=== PATIENT | female | born 1975 | race Caucasian/White ===

== ENCOUNTER 2017-01-25 11:10 | Emergency (ER) | payer MEDICAID ==
[2017-01-25] MEDS ORDERED: PANTOPRAZOLE SODIUM 40 MG VIAL IV ONE (12:17)
[2017-01-25] MEDS ORDERED: NORMAL SALINE 1000 ML 1,000 ML IV ONE (12:17)
[2017-01-25] MEDS ORDERED: MORPHINE SULFATE 10 MG/ML INJ IV ONE (12:17)
--- NOTE | 2017-01-25 12:19 | ER Document Report ---
ED Medical Screen (RME) - General Chief Complaint: Abdominal Pain Stated Complaint: ABDOMINAL PAIN Time Seen by Provider: 01/25/17 12:10 Notes: Patient is a 41-year-old female, past medical history gastric bypass, multiple ventral hernia repairs with mesh, presents with 1 day of worsening epigastric abdominal pain and nausea started last night. She says that it feels a burning and sharp sensation. PE: Uncomfortable, tachycardic, moderate epigastric abdominal tenderness I have greeted and performed a rapid initial assessment of this patient. A comprehensive ED assessment and evaluation of the patient, analysis of test results and completion of the medical decision making process will be conducted by additional ED providers. TRAVEL OUTSIDE OF THE [place] IN LAST 30 DAYS: No - Related Data Allergies/Adverse Reactions: nitrofurantoin macrocrystalline [From Macrobid] Allergy (Verified 01/25/17 11:23 ) Anaphylaxis Sulfa (Sulfonamide Antibiotics) Allergy (Verified 01/25/17 11:23) Hives metoclopramide [From Reglan] Adverse Reaction (Verified 01/25/17 11:23) nitrofurantoin [From Macrobid] Adverse Reaction (Verified 01/25/17 11:23) Penicillins Adverse Reaction (Verified 01/25/17 11:23) Past Medical History - Past Medical History Cardiac Medical History: Reports: Hx Hypertension - lisinopril Denies: Hx Coronary Artery Disease, Hx Heart Attack Pulmonary Medical History: Denies: Hx Asthma, Hx Bronchitis, Hx COPD, Hx Pneumonia Neurological Medical History: Denies: Hx Cerebrovascular Accident, Hx Seizures Renal/ Medical History: Denies: Hx Peritoneal Dialysis Musculoskeltal Medical History: Denies Hx Arthritis, Reports Hx Musculoskeletal Deformity Past Surgical History: Reports: Hx Appendectomy - Gastric Bypass, Hx Section - x3, Hx Cholecystectomy, Hx Gastric Bypass Surgery - Immunizations Hx Diphtheria, Pertussis, Tetanus Vaccination: Yes - UNK Physical Exam - Vital signs Vitals: Temp Pulse Resp BP Pulse Ox 98.4 F 133 H 24 H 143/109 H 98 01/25/17 11:23 01/25/17 11:23 01/25/17 11:23 01/25/17 11:23 01/25/17 11:23 Course - Vital Signs Vital signs: Temp Pulse Resp BP Pulse Ox 98.4 F 133 H 24 H 143/109 H 98 01/25/17 11:23 01/25/17 11:23 01/25/17 11:23 01/25/17 11:23 01/25/17 11:23
[2017-01-25 13:21] LABS: APPEARANCE,URINE SLIGHTLY-CLOUDY; BILIRUBIN,URINE SMALL (NEGATIVE); CALCIUM OXALATE CRYSTALS,URINE MODERATE /HPF; GLUCOSE, URINE NEGATIVE (NEGATIVE); KETONES,URINE TRACE mg/dL (NEGATIVE); LEUKOCYTE ESTERASE,URINE MODERATE (NEGATIVE); NITRITE,URINE NEGATIVE (NEGATIVE); PROTEIN,URINE 30 mg/dL (NEGATIVE); UROBILINOGEN,URINE NEGATIVE mg/dL (<2.0)
[2017-01-25 13:57] LABS: ABSOLUTE EOSINOPHILS # (AUTO) 0.2 10^3/uL (0.0-0.6); ABSOLUTE LYMPHOCYTES (AUTO) 1.9 10^3/uL (0.5-4.7); ABSOLUTE MONOCYTES (AUTO) 0.6 10^3/uL (0.1-1.4); ABSOLUTE NEUT (AUTO) 5.2 10^3/uL (1.7-8.2); BASOPHILS % (AUTO) 0.3 % (0-2); EOSINOPHILS % (AUTO) 2.8 % (0-6); HEMATOCRIT 47.5 % (36.0-47.0); HEMOGLOBIN 15.8 g/dL (12.0-15.5); HGB HCT DIFFERENCE -0.1; LYMPHOCYTES % (AUTO) 23.8 % (13-45); MEAN CORPUSCULAR HEMOGLOBIN 30.8 pg (27.0-33.4); MEAN CORPUSCULAR HGB CONC 33.4 g/dL (32.0-36.0); MEAN CORPUSCULAR VOLUME 92 fl (80-97); MONOCYTES % (AUTO) 7.1 % (3-13); RED BLOOD COUNT 5.15 10^6/uL (3.72-5.28); RED CELL DISTRIBUTION WIDTH 13.6 % (11.5-14.0); WHITE BLOOD COUNT 7.9 10^3/uL (4.0-10.5)
[2017-01-25] MEDS ORDERED: DIPHENHYDRAMINE HCL 50 MG/ML VIAL IV ONE (14:00)
[2017-01-25] MEDS ORDERED: MAG HYDROX/AL HYDROX/SIMETH SUSP 30 ML UDCUP PO ONE (14:00)
[2017-01-25] MEDS ORDERED: NORMAL SALINE 1000 ML 1,000 ML IV PRN (14:00)
[2017-01-25] MEDS ORDERED: LIDOCAINE 2% VISCOUS SOLN 20 ML UDCUP PO ONE (14:00)
[2017-01-25] MEDS ORDERED: ONDANSETRON HCL INJ/PF 4 MG/2 ML SDV IV ONE (14:01)
--- NOTE | 2017-01-25 14:10 | ER Document Report ---
ED GI/ - General Chief Complaint: Abdominal Pain Stated Complaint: ABDOMINAL PAIN Time Seen by Provider: 01/25/17 12:10 Mode of Arrival: Ambulatory Information source: Patient TRAVEL OUTSIDE OF THE [place] IN LAST 30 DAYS: No - HPI Patient complains to provider of: Abdominal pain, Dysuria, Vomiting Onset: Yesterday Timing/Duration: Sudden Quality of pain: Pressure, Sharp, Stabbing Severity at maximum: Severe Severity in ED: Severe Pain Level: 4 Location: Epigastric Associated symptoms: Dysuria, Nausea, Vomiting Exacerbated by: Denies Relieved by: Denies Similar symptoms previously: Yes Notes: 01/25/17 14:08 Patient is a 41-year-old female who presents to the emergency room complaining of sharp stabbing epigastric abdominal pain that started yesterday, there is also pressure to it as well as a burning sensation, symptoms have worsened over the past 8-10 hours, she reports nausea with dry heaves but no actual vomiting, she denies a fever, she has had some loose bowel movements but none today, she denies any fevers, she does also report dysuria and hematuria, history of similar symptoms previously, with multiple abdominal surgeries including gastric bypass, multiple hernia repairs, cholecystectomy - Related Data Allergies/Adverse Reactions: nitrofurantoin macrocrystalline [From Macrobid] Allergy (Verified 01/25/17 11:23 ) Anaphylaxis Sulfa (Sulfonamide Antibiotics) Allergy (Verified 01/25/17 11:23) Hives metoclopramide [From Reglan] Adverse Reaction (Verified 01/25/17 11:23) nitrofurantoin [From Macrobid] Adverse Reaction (Verified 01/25/17 11:23) Penicillins Adverse Reaction (Verified 01/25/17 11:23) Past Medical History - General Information source: Patient - Social History Smoking Status: Never Smoker Family History: Reviewed & Not Pertinent Patient has suicidal ideation: No Patient has homicidal ideation: No - Past Medical History Cardiac Medical History: Reports: Hx Hypertension - lisinopril Denies: Hx Coronary Artery Disease, Hx Heart Attack Pulmonary Medical History: Denies: Hx Asthma, Hx Bronchitis, Hx COPD, Hx Pneumonia Neurological Medical History: Denies: Hx Cerebrovascular Accident, Hx Seizures Renal/ Medical History: Denies: Hx Peritoneal Dialysis Musculoskeltal Medical History: Denies Hx Arthritis, Reports Hx Musculoskeletal Deformity Past Surgical History: Reports: Hx Appendectomy - Gastric Bypass, Hx Section - x3, Hx Cholecystectomy, Hx Gastric Bypass Surgery - Immunizations Hx Diphtheria, Pertussis, Tetanus Vaccination: Yes - UNK Review of Systems - Review of Systems Constitutional: No symptoms reported. denies: Fever EENT: No symptoms reported Cardiovascular: No symptoms reported Respiratory: No symptoms reported Gastrointestinal: See HPI Genitourinary: See HPI Female Genitourinary: No symptoms reported Musculoskeletal: No symptoms reported Skin: No symptoms reported Hematologic/Lymphatic: No symptoms reported Neurological/Psychological: No symptoms reported -: Yes All other systems reviewed and negative Physical Exam - Vital signs Vitals: Temp Pulse Resp BP Pulse Ox 98.4 F 133 H 24 H 143/109 H 98 01/25/17 11:23 01/25/17 11:23 01/25/17 11:23 01/25/17 11:23 01/25/17 11:23 Interpretation: Hypertensive, Tachycardic - General General appearance: Appears well, Alert - HEENT Head: Normocephalic, Atraumatic Eyes: Normal Pupils: PERRL - Respiratory Respiratory status: No respiratory distress Chest status: Nontender Breath sounds: Normal Chest palpation: Normal - Cardiovascular Rhythm: Regular Heart sounds: Normal auscultation Murmur: No - Abdominal Inspection: Other - Midline scar Distension: No distension Bowel sounds: Normal Tenderness: Tender - Epigastric Organomegaly: No organomegaly - Back Back: Normal, Nontender - Extremities General upper extremity: Normal inspection, Nontender, Normal color, Normal ROM , Normal temperature General lower extremity: Nontender, Normal ROM, Normal temperature, Normal weight bearing. No: Gulshan's sign Wrist: Other - Erythema to the right wrist, tracing up the veins from where her IV is placed - Neurological Neuro grossly intact: Yes Cognition: Normal Orientation: AAOx4 [place] Coma Scale Eye Opening: Spontaneous [place] Coma Scale Verbal: Oriented [place] Coma Scale Motor: Obeys Commands [place] Coma Scale Total: 15 Speech: Normal Motor strength normal: LUE, RUE, LLE, RLE Sensory: Normal - Psychological Associated symptoms: Normal affect, Normal mood - Skin Skin Temperature: Warm Skin Moisture: Dry Skin Color: Normal Course - Re-evaluation Re-evalutation: 01/25/17 19:59 Laboratory and imaging findings were discussed with patient at bedside which are relatively unremarkable except for a urinary tract infection, she was provided with a copy of all her lab values and imaging findings, for follow-up with her primary care provider, she will be provided with nausea meds, pain meds and antibiotics, advised to follow-up with her primary care provider and surgeon in 2-3 days or return if any additional concerns, patient acknowledges understanding and agreement with this plan - Vital Signs Vital signs: Temp Pulse Resp BP Pulse Ox 98.4 F 133 H 14 150/109 H 98 01/25/17 11:23 01/25/17 11:23 01/25/17 18:05 01/25/17 18:05 01/25/17 18:05 - Laboratory Result Diagrams: 01/25/17 13:30 01/25/17 16:41 Laboratory results interpreted by me: 01/25/17 01/25/17 01/25/17 12:44 13:30 16:41 Hgb 15.8 H Hct 47.5 H Potassium 3.4 L Chloride 108 H Glucose 67 L Total Protein 5.5 L Albumin 3.0 L Urine Protein 30 H Urine Ketones TRACE H Urine Bilirubin SMALL H Ur Leukocyte Esterase MODERATE H - Diagnostic Test Radiology reviewed: Image reviewed, Reports reviewed - EKG Interpretation by Me EKG shows normal: Sinus rhythm Rate: Normal Rhythm: NSR Discharge - Discharge Clinical Impression: Abdominal pain Qualifiers: Abdominal location: generalized Qualified Code(s): R10.84 - Generalized abdominal pain Urinary tract infection Qualifiers: Urinary tract infection type: site unspecified Hematuria presence: without hematuria Qualified Code(s): N39.0 - Urinary tract infection, site not specified Condition: Stable Disposition: HOME, SELF-CARE Instructions: Abdominal Pain ([facility]), Antinausea Medication ([facility]), Urinary Tract Infection ([facility]) Additional Instructions: Follow up with your primary care provider in one to 2 days. Return to the emergency room immediately if symptoms worsen or any additional concerns. Prescriptions: Cephalexin Monohydrate [Keflex 500 mg Capsule] 500 mg PO BID #20 capsule Ondansetron [Zofran Odt 4 mg Tablet] 1 - 2 tab PO Q4H #10 tab.rapdis Oxycodone HCl/Acetaminophen [Percocet 5-325 mg Tablet] 1 - 2 tab PO ASDIR PRN # 15 tablet PRN Reason:
[2017-01-25] MEDS ORDERED: HYDROMORPHONE HCL INJ/PF 2 MG/ML AMPULE IV ONE ×2 (16:50→19:58)
[2017-01-25 17:02] LABS: ALANINE AMINOTRANSFERASE 21 U/L (9-52); ALKALINE PHOSPHATASE 85 U/L (38-126); ANION GAP 7 (5-19); ASPARTATE AMINO TRANSFERASE 21 U/L (14-36); BILIRUBIN,DIRECT 0.4 mg/dL (0.0-0.4); BILIRUBIN,TOTAL 0.4 mg/dL (0.2-1.3); BLOOD UREA NITROGEN 11 mg/dL (7-20); CALCIUM 8.4 mg/dL (8.4-10.2); CARBON DIOXIDE 25 mmol/L (22-30); CHLORIDE 108 mmol/L (98-107); CREATINE KINASE 37 U/L (30-135); CREATININE RESULT 0.59 mg/dL (0.52-1.25); GLUCOSE 67 mg/dL (75-110); LIPASE 136.4 U/L (23-300); POTASSIUM 3.4 mmol/L (3.6-5.0); SODIUM 140.1 mmol/L (137-145); TOTAL PROTEIN 5.5 g/dL (6.3-8.2)
--- NOTE | 2017-01-25 18:23 | EKG REPORT ---
SEVERITY:- BORDERLINE ECG - SINUS RHYTHM PROBABLE LEFT ATRIAL ABNORMALITY : Confirmed by: Tod Laird MD 25-Jan-2017 18:22:54
--- NOTE | 2017-01-25 19:50 | RADIOLOGY REPORT (SQ) ---
EXAM DESCRIPTION: CT ABD/PELVIS WITH IV ORAL COMPLETED DATE/TIME: 01/25/2017 7:37 pm REASON FOR STUDY: abdominal pain Prior gastric bypass and cholecystectomy. Prior hernia repair. COMPARISON: 06/29/2016 TECHNIQUE: CT scan of the abdomen and pelvis performed using helical scanning technique with dynamic intravenous contrast injection. No oral contrast. Images reviewed with lung, soft tissue, and bone windows. Reconstructed coronal and sagittal MPR images reviewed. Delayed images for evaluation of the urinary system also acquired. All images stored on PACS. All CT scanners at this facility use dose modulation, iterative reconstruction, and/or weight based d osing when appropriate to reduce radiation dose to as low as reasonably achievable (ALARA). [facility]: Dose Right [facility]: CareDose [facility]: Dose Right [facility]: Teradose 4D [facility]: Ontodia CONTRAST TYPE AND DOSE: contrast/concentration: Isovue 370.00 mg/ml; Total Contrast Delivered: 55.0 ml; Total Saline Delivered: 50.0 ml RENAL FUNCTION: BUN 11 creatinine 0.59 RADIATION DOSE: Up-to-date CT equipment and radiation dose reduction techniques were employed. CTDIv ol: 4.8 - 5.3 mGy. DLP: 529 mGy-cm.. LIMITATIONS: None. FINDINGS: LOWER CHEST: No significant findings. No nodules or infiltrates. LIVER: Normal size. No masses. Mild ductal dilatation, similar to prior study and likely related to cholecystic. SPLEEN: Normal size. No focal lesions. PANCREAS: No masses. No significant calcifications. No adjacent inflammation or peripancreatic fluid collections. Pancreatic duct not dilated. GALLBLADDER: Surgically absent. Prominent common bile duct similar to prior studies. Again this is likely related prior cholecystectomy. ADRENAL GLANDS: No significant masses or asymmetry. RIGHT KIDNEY AND URETER: No solid masses. No significant calcifications. No hydronephrosis or hyd roureter. LEFT KIDNEY AND URETER: No solid masses. No significant calcifications. No hydronephrosis or hydr oureter. AORTA AND VESSELS: No aneurysm. No dissection. Renal arteries, SMA, celiac without stenosis. RETROPERITONEUM: No retroperitoneal adenopathy, hemorrhage or masses. BOWEL AND PERITONEAL CAVITY: Postsurgical changes from gastric bypass noted. The previously noted an terior abdominal wall hernia containing a loop of bowel has been repaired hip. If no evidence of mas s lesion within the bowel. No inflammatory changes. No evidence of obstruction. No intra-abdominal free air fluid identified. No mesenteric adenopathy. APPENDIX: Normal. PELVIS: No mass or free fluid. Normal bladder. Prior tubal ligation. ABDOMINAL WALL: No masses. No hernias. BONES: No significant or acute findings. OTHER: No other significant finding. IMPRESSION: No acute abnormality identified within the abdomen pelvis. The previously noted anterio r abdominal wall hernia has been repaired. TECHNICAL DOCUMENTATION: JOB ID: [id number] Quality ID # [id number]: Final reports with documentation of one or more dose reduction techniques (e.g., Au tomated exposure control, adjustment of the mA and/or kV according to patient size, use of iterative reconstruction technique) 2010 [employer]- All Rights Reserved
[2017-01-25] MEDS ORDERED: ONDANSETRON ODT 4 MG TAB (6 TAB/DSPK) PO PRN (19:58)
[2017-01-25] MEDS ORDERED: HYDROCODONE/ACETAMINOPHEN 5-325 MG 6 TAB/DSPK PO PRN (19:58)
[2017-01-25 20:22] VITALS: BP 151/105
== END 2017-01-25 20:30 | disposition home or self-care (01) ==
LOC: ER 11:10
DX: R10.84 Generalized abdominal pain (principal); N39.0 Urinary tract infection, site not specified; R11.2 Nausea with vomiting, unspecified; I10 Essential (primary) hypertension; Z98.84 Bariatric surgery status; Z90.49 Acquired absence of other specified parts of digestive tract; Z88.0 Allergy status to penicillin; Z88.2 Allergy status to sulfonamides; Z88.3 Allergy status to other anti-infective agents
CPT/HCPCS: 93005; 96376; 99284; 96361; 96374; 96375; 36415; 82550; 83690; 84703; 85025; 80053; 81001; 84484; 83605; 74177; 93010; J1200; J3490 ×2; J2270; J1170; S0164; J2405; J7030

== ENCOUNTER 2017-01-27 15:24 | Emergency (ER) | payer MEDICAID ==
--- NOTE | 2017-01-27 18:15 | ER Document Report ---
ED Medical Screen (RME) - General Chief Complaint: Abdominal Pain Stated Complaint: ABDOMINAL PAIN Time Seen by Provider: 01/27/17 17:57 Notes: This 41-year-old female patient with prior gastric bypass surgery complains of 4 day history of severe mid epigastric abdominal pain which is a deep stabbing pain, burning pain, comes in waves like contractions. Was seen here 2 days ago and had a negative CT scan of the abdomen and pelvis with contrast. He was prescribed Percocet on that visit. A review of [place] database shows she is on chronic pain management with Percocet. She states the chronic pain management is for cervical neck pain. The patient's mother reports in May 2014 the patient had [address] scans just before the abnormal CT scan that resulted in her transfer to [place]. Review of the records shows this to not be accurate. She had 3 visits that month, one was for palpitations and dizziness. The second several days later with her abdominal pain and she had an acute abdominal series showing a subtle abnormality which was probably be volvulus developing found a couple days later. She finally did have a CT scan on 06/20/2014 showing gross abnormality and was transferred at that time. I have greeted and performed a rapid initial assessment of this patient. A comprehensive ED assessment and evaluation of the patient, analysis of test results and completion of the medical decision making process will be conducted by additional ED providers. TRAVEL OUTSIDE OF THE U.S. IN LAST 30 DAYS: No - Related Data Allergies/Adverse Reactions: nitrofurantoin macrocrystalline [From Macrobid] Allergy (Verified 01/25/17 11:23 ) Anaphylaxis Sulfa (Sulfonamide Antibiotics) Allergy (Verified 01/25/17 11:23) Hives metoclopramide [From Reglan] Adverse Reaction (Verified 01/25/17 11:23) nitrofurantoin [From Macrobid] Adverse Reaction (Verified 01/25/17 11:23) Penicillins Adverse Reaction (Verified 01/25/17 11:23) Past Medical History - Past Medical History Cardiac Medical History: Reports: Hx Hypertension - lisinopril Denies: Hx Coronary Artery Disease, Hx Heart Attack Pulmonary Medical History: Denies: Hx Asthma, Hx Bronchitis, Hx COPD, Hx Pneumonia Neurological Medical History: Denies: Hx Cerebrovascular Accident, Hx Seizures Renal/ Medical History: Denies: Hx Peritoneal Dialysis Musculoskeltal Medical History: Denies Hx Arthritis, Reports Hx Musculoskeletal Deformity Past Surgical History: Reports: Hx Appendectomy - Gastric Bypass, Hx Section - x3, Hx Cholecystectomy, Hx Gastric Bypass Surgery - Immunizations Hx Diphtheria, Pertussis, Tetanus Vaccination: Yes - UNK Physical Exam - Vital signs Vitals: Temp Pulse Resp BP Pulse Ox 98.3 F 79 23 H 147/96 H 99 01/27/17 15:32 01/27/17 15:32 01/27/17 15:32 01/27/17 15:32 01/27/17 15:32 Course - Vital Signs Vital signs: Temp Pulse Resp BP Pulse Ox 98.3 F 79 23 H 147/96 H 99 01/27/17 15:32 01/27/17 15:32 01/27/17 15:32 01/27/17 15:32 01/27/17 15:32
[2017-01-27 19:25] LABS: ABSOLUTE EOSINOPHILS # (AUTO) 0.7 10^3/uL (0.0-0.6); ABSOLUTE LYMPHOCYTES (AUTO) 1.4 10^3/uL (0.5-4.7); ABSOLUTE MONOCYTES (AUTO) 0.4 10^3/uL (0.1-1.4); ABSOLUTE NEUT (AUTO) 6.3 10^3/uL (1.7-8.2); BASOPHILS % (AUTO) 0.3 % (0-2); EOSINOPHILS % (AUTO) 7.6 % (0-6); HEMATOCRIT 44.2 % (36.0-47.0); HEMOGLOBIN 14.6 g/dL (12.0-15.5); HGB HCT DIFFERENCE -0.4; LYMPHOCYTES % (AUTO) 16.3 % (13-45); MEAN CORPUSCULAR HEMOGLOBIN 30.7 pg (27.0-33.4); MEAN CORPUSCULAR VOLUME 93 fl (80-97); MONOCYTES % (AUTO) 4.7 % (3-13); RED BLOOD COUNT 4.74 10^6/uL (3.72-5.28); RED CELL DISTRIBUTION WIDTH 13.1 % (11.5-14.0); SEGMENTED NEUTROPHILS % (AUTO) 71.1 % (42-78); WHITE BLOOD COUNT 8.8 10^3/uL (4.0-10.5)
[2017-01-27 19:31] LABS: APPEARANCE,URINE CLEAR; BILIRUBIN,URINE NEGATIVE (NEGATIVE); GLUCOSE, URINE NEGATIVE (NEGATIVE); KETONES,URINE 100 mg/dL (NEGATIVE); URINE SPECIFIC GRAVITY 1.027
[2017-01-27 19:32] LABS: NITRITE,URINE NEGATIVE (NEGATIVE); PROTEIN,URINE NEGATIVE (NEGATIVE); UROBILINOGEN,URINE NEGATIVE mg/dL (<2.0)
[2017-01-27 19:34] LABS: LEUKOCYTE ESTERASE,URINE NEGATIVE (NEGATIVE); RBC,URINE 0-1 /HPF; WBC,URINE 0-1 /HPF
[2017-01-27 19:35] LABS: BACTERIA,URINE TRACE /HPF
[2017-01-27 19:41] LABS: ALANINE AMINOTRANSFERASE 36 U/L (9-52); ALBUMIN 3.8 g/dL (3.5-5.0); ALKALINE PHOSPHATASE 98 U/L (38-126); ANION GAP 12 (5-19); ASPARTATE AMINO TRANSFERASE 23 U/L (14-36); BILIRUBIN,DIRECT 0.3 mg/dL (0.0-0.4); BILIRUBIN,TOTAL 0.7 mg/dL (0.2-1.3); BLOOD UREA NITROGEN 7 mg/dL (7-20); CALCIUM 9.2 mg/dL (8.4-10.2); CARBON DIOXIDE 25 mmol/L (22-30); CHLORIDE 100 mmol/L (98-107); CREATININE RESULT 0.48 mg/dL (0.52-1.25); GLUCOSE 71 mg/dL (75-110); LIPASE 74.1 U/L (23-300); POTASSIUM 3.9 mmol/L (3.6-5.0); SODIUM 136.9 mmol/L (137-145); TOTAL PROTEIN 6.2 g/dL (6.3-8.2)
--- NOTE | 2017-01-27 20:11 | ER Document Report ---
ED GI/ - General Chief Complaint: Abdominal Pain Stated Complaint: ABDOMINAL PAIN Time Seen by Provider: 01/27/17 17:57 Mode of Arrival: Ambulatory Information source: Patient Notes: 41-year-old female presents to ED for abdominal pain. She had a gastric bypass in the past she also in 2013 had a volvulus that she was transferred to [facility]. 2 days ago she was seen for a abdominal pelvic pain and had a negative CT of the abdomen pelvis. She was prescribed Percocet on that visit. Dr. Whittington looked in the [place] database shows that she is on chronic pain management with oxycodone 15 mg 60 a month for chronic pain in her neck and back. She is also on fentanyl patches 50 mcg patches that she gets 10 of every month. She sees Dr. Joe Allen for these chronic pain management as well as she gets alprazolam 1 mg 90 a month. She states she is supposed to be having neck surgery soon and she has not been taken the oxycodone fentanyl and alprazolam. When further questioned she states that she ran out of the oxycodone and alprazolam. She is also used Percocet prescribed on her visit a couple days ago. TRAVEL OUTSIDE OF THE [place].S. IN LAST 30 DAYS: No - HPI Patient complains to provider of: Abdominal pain, Other - No bowel movement she states since Wednesday Onset: Other - Since Wednesday Timing/Duration: Gradual, Intermittent Quality of pain: Cramping Severity at maximum: Severe Severity in ED: Severe Pain Level: 5 Location: LLQ, RLQ Vaginal bleeding (Compared to normal period): None Exacerbated by: Denies Relieved by: Denies Similar symptoms previously: Yes Recently seen / treated by doctor: Yes - Related Data Allergies/Adverse Reactions: nitrofurantoin macrocrystalline [From Macrobid] Allergy (Verified 01/25/17 11:23 ) Anaphylaxis Sulfa (Sulfonamide Antibiotics) Allergy (Verified 01/25/17 11:23) Hives metoclopramide [From Reglan] Adverse Reaction (Verified 01/25/17 11:23) nitrofurantoin [From Macrobid] Adverse Reaction (Verified 01/25/17 11:23) Penicillins Adverse Reaction (Verified 01/25/17 11:23) Past Medical History - General Information source: Patient - Social History Smoking Status: Never Smoker Cigarette use (# per day): No Chew tobacco use (# tins/day): No Smoking Education Provided: No Frequency of alcohol use: None Drug Abuse: None Lives with: Family Family History: Reviewed & Not Pertinent Patient has suicidal ideation: No Patient has homicidal ideation: No - Past Medical History Cardiac Medical History: Reports: Hx Hypertension - lisinopril , only when in pain Pulmonary Medical History: Reports: None EENT Medical History: Reports: None Neurological Medical History: Reports: None Endocrine Medical History: Reports: None Renal/ Medical History: Reports: None Malignancy Medical History: Reports: None GI Medical History: Reports: Other - volvulus Musculoskeltal Medical History: Reports Hx Musculoskeletal Deformity Skin Medical History: Reports None Psychiatric Medical History: Reports: Hx Anxiety Traumatic Medical History: Reports: None Infectious Medical History: Reports: None Past Surgical History: Reports: Hx Section - x3, Hx Cholecystectomy, Hx Gastric Bypass Surgery - Immunizations Hx Diphtheria, Pertussis, Tetanus Vaccination: Yes - UNK Review of Systems - Review of Systems Constitutional: No symptoms reported EENT: No symptoms reported Cardiovascular: No symptoms reported Respiratory: No symptoms reported Gastrointestinal: Abdominal pain Genitourinary: No symptoms reported Female Genitourinary: No symptoms reported Musculoskeletal: No symptoms reported Skin: No symptoms reported Hematologic/Lymphatic: No symptoms reported Neurological/Psychological: No symptoms reported -: Yes All other systems reviewed and negative Physical Exam - Vital signs Vitals: Temp Pulse Resp BP Pulse Ox 98.3 F 79 23 H 147/96 H 99 01/27/17 15:32 01/27/17 15:32 01/27/17 15:32 01/27/17 15:32 01/27/17 15:32 Interpretation: Normal - General General appearance: Appears well, Alert - HEENT Head: Normocephalic, Atraumatic Eyes: Normal Pupils: PERRL - Respiratory Respiratory status: No respiratory distress Chest status: Nontender Breath sounds: Normal Chest palpation: Normal - Cardiovascular Rhythm: Regular Heart sounds: Normal auscultation Murmur: No - Abdominal Inspection: Normal Distension: No distension Bowel sounds: Normal Tenderness: Tender - Epigastric pain comes in waves her contractions Organomegaly: No organomegaly - Back Back: Normal, Nontender - Extremities General upper extremity: Normal inspection, Nontender, Normal color, Normal ROM , Normal temperature General lower extremity: Normal inspection, Nontender, Normal color, Normal ROM , Normal temperature, Normal weight bearing. No: Gulshan's sign - Neurological Neuro grossly intact: Yes Cognition: Normal Orientation: AAOx4 [place] Coma Scale Eye Opening: Spontaneous [place] Coma Scale Verbal: Oriented [place] Coma Scale Motor: Obeys Commands [place] Coma Scale Total: 15 Speech: Normal Motor strength normal: LUE, RUE, LLE, RLE Sensory: Normal - Psychological Associated symptoms: Normal affect, Normal mood - Skin Skin Temperature: Warm Skin Moisture: Dry Skin Color: Normal Course - Re-evaluation Re-evalutation: 01/27/17 20:14 CT 2 days ago of abdomen and pelvis labs are normal today we will discuss with patient and have her follow-up with her primary doctor tomorrow. - Vital Signs Vital signs: Temp Pulse Resp BP Pulse Ox 98.5 F 71 18 144/102 H 100 01/27/17 18:58 01/27/17 18:58 01/27/17 18:58 01/27/17 18:58 01/27/17 18:58 - Laboratory Result Diagrams: 01/27/17 19:08 01/27/17 19:08 Laboratory results interpreted by me: 01/27/17 01/27/17 01/27/17 18:50 19:08 19:08 Eosinophils % 7.6 H Absolute Eosinophils 0.7 H Sodium 136.9 L Creatinine 0.48 L Glucose 71 L Total Protein 6.2 L Urine Ketones 100 H Discharge - Discharge Clinical Impression: Abdominal pain Qualifiers: Abdominal location: generalized Qualified Code(s): R10.84 - Generalized abdominal pain Additional Instructions: ABDOMINAL PAIN: There are many causes of abdominal pain. Pain can mean a serious problem requiring surgery (such as appendicitis). It can also be an innocent problem that goes away on its own (such as a viral infection). Often, time must pass to determine the cause of pain. The physician does not feel that hospitalization is necessary, at present. Things may change within the next 24 hours. Call the doctor or come back for re- examination if any problems occur, such as: (1) Pain that becomes more severe, steady, or becomes concentrated in one specific area. Also, pain that is more severe with movement or coughing. (2) Vomiting that persists or becomes more frequent. (3) Blood in the vomitus, urine, or bowel movements. Blood in the stool may have a tarry or black appearance. (4) Shaking chills or fever greater than 100 degrees F. (5) The abdomen becomes more distended or swollen. (6) Bowel movements cease. (7) Failure to improve as expected. NORMAL EXAM AND WORKUP: At this time, your examination and workup show no significant abnormality. No significant abnormal physical findings are noted. All laboratory, EKG, and imaging (x-ray, CT scans, ultrasound) studies that were ordered show no significant abnormality. Although your examination and all studies that were ordered showed no significant abnormal finding, there are no examinations and no studies that are 100% accurate. There is always the possibility that some abnormality could exist and not be detected with physical examination or within the limits and capabilities of laboratory and other studies. You should return or follow up as you were instructed on your visit today for further evaluation if your symptoms do not resolve. FOLLOW-UP CARE: If you have been referred to a physician for follow-up care, call the physician s office for an appointment as you were instructed or within the next two days. If you experience worsening or a significant change in your symptoms, notify the physician immediately or return to the Emergency Department at any time for re-evaluation. Please call your primary doctor plan to schedule a follow-up appointment for this abdominal pain. You had a negative CT 2 days ago and your labs are all negative today. Urine is also negative today. Your exam is also negative. Forms: Elevated Blood Pressure Referrals: JOE ALLEN MD [Primary Care Provider] - Follow up as needed
[2017-01-27 21:01] VITALS: BP 150/97
== END 2017-01-27 21:04 | disposition home or self-care (01) ==
LOC: ER 15:24
DX: R10.84 Generalized abdominal pain (principal); G89.29 Other chronic pain; M54.2 Cervicalgia; M54.9 Dorsalgia, unspecified; Z98.84 Bariatric surgery status; Z88.2 Allergy status to sulfonamides; Z88.0 Allergy status to penicillin; Z90.49 Acquired absence of other specified parts of digestive tract
CPT/HCPCS: 36415; 80053; 81001; 83690; 85025; 99284

== ENCOUNTER → 2017-02-01 | Outpatient (CLI) | payer MEDICAID ==
--- NOTE | 2017-02-01 16:12 | RADIOLOGY REPORT (SQ) ---
EXAM DESCRIPTION: U/S ABDOMEN LIMITED W/O DOP COMPLETED DATE/TIME: 02/01/2017 3:58 pm REASON FOR STUDY: EPIGASTRIC PAIN R10.13 EPIGASTRIC PAIN COMPARISON: None. TECHNIQUE: Dynamic and static grayscale images acquired of the right upper quadrant and recorded on PACS. Additional selected color Doppler and spectral images recorded. LIMITATIONS: Study limited due to acoustical interference from fat or from air in the bowel. FINDINGS: PANCREAS: Obscured by overlying bowel gas. LIVER: No masses. Echotexture normal. LIVER VASCULATURE: Normal directional flow of the main portal vein and hepatic veins. GALLBLADDER: Surgically absent. ULTRASOUND-DETECTED PLEITEZ'S SIGN: Negative. INTRAHEPATIC DUCTS AND COMMON DUCT: Common bile duct is dilated, measuring 1.8 cm. Distal portion is obscured by bowel gas. INFERIOR VENA CAVA: Normal flow. AORTA: No aneurysm. RIGHT KIDNEY: Normal size. Normal echogenicity. No solid or suspicious masses. No hydronephrosis. No calcifications. PERITONEAL CAVITY AND RIGHT PLEURAL SPACE: No ascites or effusions. OTHER: No other significant finding. IMPRESSION: DILATED COMMON BILE DUCT. THE DISTAL PORTION IS OBSCURED BY BOWEL GAS. FURTHER EVALUAT ION WITH MRCP MAY BE INDICATED. TECHNICAL DOCUMENTATION: JOB ID: [id number] [employer]- All Rights Reserved
== END ==
LOC: RAD 14:57
PROVIDERS: ATTEND Obstetrics & Gynecology
DX: R10.13 Epigastric pain (principal)
CPT/HCPCS: 76705

== ENCOUNTER → 2017-02-02 | Outpatient (CLI) | payer MEDICAID ==
[2017-02-02 11:09] LABS: HEMATOCRIT 40.7 % (36.0-47.0); HEMOGLOBIN 13.4 g/dL (12.0-15.5); HGB HCT DIFFERENCE -0.5; MEAN CORPUSCULAR HEMOGLOBIN 30.8 pg (27.0-33.4); MEAN CORPUSCULAR HGB CONC 33.1 g/dL (32.0-36.0); MEAN CORPUSCULAR VOLUME 93 fl (80-97); RED BLOOD COUNT 4.36 10^6/uL (3.72-5.28); RED CELL DISTRIBUTION WIDTH 13.3 % (11.5-14.0)
[2017-02-02 11:28] LABS: ALANINE AMINOTRANSFERASE 31 U/L (9-52); ALBUMIN 3.9 g/dL (3.5-5.0); ALKALINE PHOSPHATASE 88 U/L (38-126); ANION GAP 11 (5-19); ASPARTATE AMINO TRANSFERASE 21 U/L (14-36); BILIRUBIN,DIRECT 0.3 mg/dL (0.0-0.4); BILIRUBIN,TOTAL 0.3 mg/dL (0.2-1.3); BLOOD UREA NITROGEN 12 mg/dL (7-20); CALCIUM 9.6 mg/dL (8.4-10.2); CARBON DIOXIDE 25 mmol/L (22-30); CHLORIDE 101 mmol/L (98-107); CREATININE RESULT 0.68 mg/dL (0.52-1.25); GLUCOSE 105 mg/dL (75-110); POTASSIUM 4.4 mmol/L (3.6-5.0); TOTAL PROTEIN 6.8 g/dL (6.3-8.2)
== END ==
LOC: LAB 10:43
PROVIDERS: ATTEND Obstetrics & Gynecology
DX: R25.2 Cramp and spasm (principal); R53.83 Other fatigue; R10.13 Epigastric pain
CPT/HCPCS: 36415; 80053; 83735; 84443; 85027

== ENCOUNTER → 2017-02-05 | Outpatient (CLI) | payer MEDICAID ==
--- NOTE | 2017-02-05 09:34 | RADIOLOGY REPORT (SQ) ---
EXAM DESCRIPTION: MRI ABDOMEN WITHOUT COMPLETED DATE/TIME: 02/05/2017 9:02 am REASON FOR STUDY: (MRCP) CHOLECYSTECTOMY (Z90.49), S/P GASRIC BYPASS (Z98.84), EPIGASRIC PAIN R10.13 EPIGASTRIC PAIN Z90.49 ACQUIRED ABSENCE OF OTHER SPECIFIED PARTS OF DIGESTIV Z98.84 BARIATRIC THEODORE MARCIAL STATUS COMPARISON: CT abdomen pelvis 06/20/2014, 06/29/2016, 01/25/2017 Abdominal ultrasound 02/01/2017 TECHNIQUE: Noncontrast MRCP. Source and MIP images reviewed. LIMITATIONS: None. FINDINGS: GALLBLADDER: Surgically absent INTRAHEPATIC DUCTS: Very mild prominence of the intrahepatic bile ducts, similar to prior CT exams fr om 01/25/2017, 06/29/2016, 06/20/2014. EXTRAHEPATIC DUCTS: The common hepatic duct is 17 mm in diameter. No filling defects worrisome for s tones. No stricture. Common hepatic duct measured about 15 mm in diameter on CT 06/20/2014. Dilated cystic duct stump is present without filling defects worrisome for stones, best shown on mai nal series 11, image 11 and 12. Common bile duct measures about 6 to 7 mm in diameter, without filling defects or stricture. PANCREAS: Generally homogeneous, no gross mass or significant signal alteration. No surrounding infl ammatory changes or fluid. Pancreatic duct is normal. LIVER, SPLEEN, KIDNEYS, ADRENALS: No significant abnormality. VESSELS: No evidence of aneurysm. Grossly appropriate flow voids in the major vascular structures. LUNG BASES: Grossly clear. OTHER: Magnetic artifact from surgical clips along the gastric bypass. Consider upper GI follow-up t o evaluate the gastric pouch outlet, given history of epigastric pain. IMPRESSION: Post cholecystectomy Benign-appearing dilatation of the common hepatic duct, cystic duct stump, and common bile duct Consider upper GI given history of epigastric pain and gastric bypass. TECHNICAL DOCUMENTATION: JOB ID: [id number] [employer]- All Rights Reserved
== END ==
LOC: RAD 07:21
PROVIDERS: ATTEND Obstetrics & Gynecology
DX: R10.13 Epigastric pain (principal); Z90.49 Acquired absence of other specified parts of digestive tract; Z98.84 Bariatric surgery status
CPT/HCPCS: 74181

== ENCOUNTER → 2017-05-07 | Outpatient (CLI) | payer MEDICAID ==
[2017-05-07 16:02] LABS: HEMATOCRIT 37.5 % (36.0-47.0); HEMOGLOBIN 12.9 g/dL (12.0-15.5); HGB HCT DIFFERENCE 1.2; MEAN CORPUSCULAR HEMOGLOBIN 32.1 pg (27.0-33.4); MEAN CORPUSCULAR HGB CONC 34.5 g/dL (32.0-36.0); MEAN CORPUSCULAR VOLUME 93 fl (80-97); RED BLOOD COUNT 4.03 10^6/uL (3.72-5.28); RED CELL DISTRIBUTION WIDTH 12.9 % (11.5-14.0); WHITE BLOOD COUNT 5.9 10^3/uL (4.0-10.5)
== END ==
LOC: OD 14:27
PROVIDERS: ATTEND Obstetrics & Gynecology
DX: D64.9 Anemia, unspecified (principal); R13.10 Dysphagia, unspecified; R63.4 Abnormal weight loss
CPT/HCPCS: 36415; 82550; 85027

== ENCOUNTER → 2017-09-22 | Outpatient (CLI) | payer MEDICAID ==
[2017-09-22 16:48] LABS: HEMATOCRIT 38.9 % (36.0-47.0); HEMOGLOBIN 13.5 g/dL (12.0-15.5); MEAN CORPUSCULAR HEMOGLOBIN 32.2 pg (27.0-33.4); MEAN CORPUSCULAR HGB CONC 34.7 g/dL (32.0-36.0); MEAN CORPUSCULAR VOLUME 93 fl (80-97); PLATELET COUNT 398 10^3/uL (150-450); RED BLOOD COUNT 4.18 10^6/uL (3.72-5.28); RED CELL DISTRIBUTION WIDTH 13.2 % (11.5-14.0); WHITE BLOOD COUNT 5.1 10^3/uL (4.0-10.5)
[2017-09-22 17:07] LABS: ALANINE AMINOTRANSFERASE 98 U/L (9-52); ALKALINE PHOSPHATASE 104 U/L (38-126); ANION GAP 7 (5-19); ASPARTATE AMINO TRANSFERASE 49 U/L (14-36); BLOOD UREA NITROGEN 16 mg/dL (7-20); CALCIUM 9.1 mg/dL (8.4-10.2); CARBON DIOXIDE 32 mmol/L (22-30); CHLORIDE 100 mmol/L (98-107); GLUCOSE 88 mg/dL (75-110); SODIUM 138.5 mmol/L (137-145)
[2017-09-22 18:13] LABS: BILIRUBIN,TOTAL < 0.1 mg/dL (0.2-1.3)
== END ==
LOC: OD 16:04
PROVIDERS: ATTEND Obstetrics & Gynecology
DX: R00.0 Tachycardia, unspecified (principal); R03.0 Elevated blood-pressure reading, without diagnosis of hypertension; R51 Headache; Z83.3 Family history of diabetes mellitus; Z79.891 Long term (current) use of opiate analgesic
CPT/HCPCS: 36415; 80053; 82607; 82746; 83036; 84443; 85027

== ENCOUNTER → 2017-12-09 | Outpatient (CLI) | payer MEDICAID ==
[2017-12-09 12:32] LABS: HEMATOCRIT 38.9 % (36.0-47.0); HEMOGLOBIN 13.2 g/dL (12.0-15.5); MEAN CORPUSCULAR HEMOGLOBIN 31.6 pg (27.0-33.4); MEAN CORPUSCULAR HGB CONC 33.9 g/dL (32.0-36.0); MEAN CORPUSCULAR VOLUME 93 fl (80-97); RED BLOOD COUNT 4.17 10^6/uL (3.72-5.28); RED CELL DISTRIBUTION WIDTH 13.8 % (11.5-14.0); WHITE BLOOD COUNT 10.3 10^3/uL (4.0-10.5)
[2017-12-09 12:48] LABS: PLATELET COUNT 271 10^3/uL (150-450)
[2017-12-09 12:56] LABS: ALANINE AMINOTRANSFERASE 28 U/L (9-52); ALBUMIN 3.2 g/dL (3.5-5.0); ALKALINE PHOSPHATASE 72 U/L (38-126); ANION GAP 10 (5-19); ASPARTATE AMINO TRANSFERASE 26 U/L (14-36); BILIRUBIN,DIRECT 0.2 mg/dL (0.0-0.4); BILIRUBIN,TOTAL 0.2 mg/dL (0.2-1.3); BLOOD UREA NITROGEN 9 mg/dL (7-20); CALCIUM 9.7 mg/dL (8.4-10.2); CARBON DIOXIDE 30 mmol/L (22-30); CHLORIDE 102 mmol/L (98-107); CHOLESTEROL 182.07 mg/dL (0-200); GLUCOSE 76 mg/dL (75-110); POTASSIUM 4.7 mmol/L (3.6-5.0); SODIUM 141.7 mmol/L (137-145); TOTAL PROTEIN 5.6 g/dL (6.3-8.2); TRIGLYCERIDES 61 mg/dL (<150)
[2017-12-09 13:13] LABS: DIRECT LDL 54 mg/dL (<100)
== END ==
LOC: OD 11:16
PROVIDERS: ATTEND Obstetrics & Gynecology
DX: Z98.84 Bariatric surgery status (principal)
CPT/HCPCS: 36415; 80053; 80061; 83036; 85027

== ENCOUNTER 2017-12-16 12:49 | Emergency (ER) | payer SELFPAY ==
[2017-12-16] MEDS ORDERED: PANTOPRAZOLE SODIUM 40 MG VIAL IV ONE (12:59)
[2017-12-16] MEDS ORDERED: NORMAL SALINE 1000 ML 1,000 ML IV ONE (13:02)
[2017-12-16] MEDS ORDERED: ONDANSETRON HCL INJ/PF 4 MG/2 ML SDV IV ONE (13:02)
[2017-12-16] MEDS ORDERED: PANTOPRAZOLE SODIUM 40 MG VIAL IV PRN (13:03)
[2017-12-16 13:21] LABS: ABSOLUTE BASOPHILS # (AUTO) 0.1 10^3/uL (0.0-0.2); ABSOLUTE EOSINOPHILS # (AUTO) 0.2 10^3/uL (0.0-0.6); ABSOLUTE LYMPHOCYTES (AUTO) 2.5 10^3/uL (0.5-4.7); ABSOLUTE MONOCYTES (AUTO) 0.5 10^3/uL (0.1-1.4); ABSOLUTE NEUT (AUTO) 4.2 10^3/uL (1.7-8.2); BASOPHILS % (AUTO) 1.4 % (0-2); EOSINOPHILS % (AUTO) 3.1 % (0-6); HEMATOCRIT 35.3 % (36.0-47.0); HEMOGLOBIN 11.9 g/dL (12.0-15.5); LYMPHOCYTES % (AUTO) 33.6 % (13-45); MEAN CORPUSCULAR HEMOGLOBIN 31.6 pg (27.0-33.4); MEAN CORPUSCULAR HGB CONC 33.7 g/dL (32.0-36.0); MEAN CORPUSCULAR VOLUME 94 fl (80-97); MONOCYTES % (AUTO) 6.3 % (3-13); PLATELET COUNT 467 10^3/uL (150-450); RED BLOOD COUNT 3.76 10^6/uL (3.72-5.28); SEGMENTED NEUTROPHILS % (AUTO) 55.6 % (42-78); TOTAL CELLS COUNTED % (AUTO) 100 %; WHITE BLOOD COUNT 7.5 10^3/uL (4.0-10.5)
[2017-12-16] MEDS ORDERED: HYDROMORPHONE HCL INJ/PF 2 MG/ML AMPULE IV ONE ×3 (13:25→17:39)
--- NOTE | 2017-12-16 13:25 | ER Document Report ---
ED General - General Chief Complaint: Nausea/Vomiting Stated Complaint: VOMITING BLOOD Time Seen by Provider: 12/16/17 13:07 Mode of Arrival: Ambulatory Information source: Patient Notes: 42-year-old female history of gastric bypass previous esophageal ulcer near the bypass section who takes BC powders daily. Patient notes she began vomiting early today initially it was normal in appearance but then had dark clot and then bright red blood. Patient denies any dark stools admits to epigastric pain TRAVEL OUTSIDE OF THE [place] IN LAST 30 DAYS: No - HPI Onset: Just prior to arrival Onset/Duration: Sudden Quality of pain: Sharp Severity: Moderate Pain Level: 2 Associated symptoms: Nausea, Vomiting Exacerbated by: Denies Relieved by: Denies Similar symptoms previously: Yes Recently seen / treated by doctor: Yes - Related Data Allergies/Adverse Reactions: nitrofurantoin macrocrystalline [From Macrobid] Allergy (Verified 12/16/17 13:18 ) Anaphylaxis Sulfa (Sulfonamide Antibiotics) Allergy (Verified 12/16/17 13:18) Hives metoclopramide [From Reglan] Adverse Reaction (Verified 12/16/17 13:18) nitrofurantoin [From Macrobid] Adverse Reaction (Verified 12/16/17 13:18) Penicillins Adverse Reaction (Verified 12/16/17 13:18) Past Medical History - Social History Smoking Status: Current Every Day Smoker Cigarette use (# per day): Yes Chew tobacco use (# tins/day): No Smoking Education Provided: No Family History: Reviewed & Not Pertinent - Past Medical History Cardiac Medical History: Reports: Hx Hypertension - lisinopril , only when in pain Denies: Hx Coronary Artery Disease, Hx Heart Attack Pulmonary Medical History: Denies: Hx Asthma, Hx Bronchitis, Hx COPD, Hx Pneumonia Neurological Medical History: Denies: Hx Cerebrovascular Accident, Hx Seizures Renal/ Medical History: Denies: Hx Peritoneal Dialysis Musculoskeltal Medical History: Denies Hx Arthritis, Reports Hx Musculoskeletal Deformity Psychiatric Medical History: Reports: Hx Anxiety Past Surgical History: Reports: Hx Appendectomy - Gastric Bypass, Hx Section - x3, Hx Cholecystectomy, Hx Gastric Bypass SurgeryComment Only: Hx Abdominal Surgery - gastric bypass, hernia repair x 4 - Immunizations Hx Diphtheria, Pertussis, Tetanus Vaccination: Yes - UNK Review of Systems - Review of Systems Notes: REVIEW OF SYSTEMS: CONSTITUTIONAL : Denies fever, chills, or sweats. Denies recent illness. EENT: Denies eye, ear, throat, or mouth pain or symptoms. Denies nasal or sinus congestion or discharge. Denies throat, tongue, or mouth swelling or difficulty swallowing. CARDIOVASCULAR: Denies chest pain. Denies palpitations or racing or irregular heart beat. Denies ankle edema. RESPIRATORY: Denies cough, cold, or chest congestion. Denies shortness of breath, difficulty breathing, or wheezing. GASTROINTESTINAL: Admits to epigastric pain GENITOURINARY: Denies difficulty urinating, painful urination, burning, frequency, blood in urine, or discharge. FEMALE GENITOURINARY: Denies vaginal bleeding, heavy or abnormal periods, irregular periods. Denies vaginal discharge or odor. MUSCULOSKELETAL: Denies back or neck pain or stiffness. Denies joint pain or swelling. SKIN: Denies rash, lesions or sores. HEMATOLOGIC : Denies easy bruising or bleeding. LYMPHATIC: Denies swollen, enlarged glands. NEUROLOGICAL: Denies confusion or altered mental status. Denies passing out or loss of consciousness. Denies dizziness or lightheadedness. Denies headache. Denies weakness or paralysis or loss of use of either side. Denies problems with gait or speech. Denies sensory loss, numbness, or tingling. Denies seizures. PSYCHIATRIC: Denies anxiety or stress. Denies depression, suicidal ideation, or homicidal ideation. ALL OTHER SYSTEMS REVIEWED AND NEGATIVE. PHYSICAL EXAMINATION: GENERAL: Initially very ill-appearing female significant distress HEAD: Atraumatic, normocephalic. EYES: Pupils equal round and reactive to light, extraocular movements intact, conjunctiva are normal. ENT: Nares patent, oropharynx clear without exudates. Moist mucous membranes. NECK: Normal range of motion, supple without lymphadenopathy LUNGS: Breath sounds clear to auscultation bilaterally and equal. No wheezes rales or rhonchi. HEART: Tachycardic ABDOMEN: Soft, tender in the epigastric region, nondistended abdomen. No guarding, no rebound. No masses appreciated. Female : deferred Musculoskeletal: Normal range of motion, no pitting or edema. No cyanosis. NEUROLOGICAL: Cranial nerves grossly intact. Normal speech, normal gait. Normal sensory, motor exams PSYCH: Normal mood, normal affect. SKIN: Warm, Dry, normal turgor, no rashes or lesions noted. Dictation was performed using [employer] voice recognition software Physical Exam - Vital signs Vitals: Resp 15 12/16/17 13:01 Course - Re-evaluation Re-evalutation: Immediate Protonix bolus drip 2 L of fluid type and screen performed, 12/16/17 13:28 dant paged immediately for transfer 12/16/17 14:[address] Joyce who accepts patient hemoglobin is 1.9 will hold off on transfusion, she is only vomited prior to my evaluation but not after, it is noted large amount of blood in the emesis basins 12/16/17 17:19 Patient's heart rate has improved significantly, currently at rest at 84 blood pressure is stable awaiting transport - Vital Signs Vital signs: Temp Pulse Resp BP Pulse Ox 98.4 F 11 L 98/69 L 97 12/16/17 14:46 12/16/17 16:40 12/16/17 16:40 12/16/17 16:40 - Laboratory Result Diagrams: 12/16/17 13:00 12/16/17 13:00 Laboratory results interpreted by me: 12/16/17 12/16/17 13:00 13:00 Hgb 11.9 L Hct 35.3 L Plt Count 467 H Indirect Bilirubin 0.0 L Total Protein 4.9 L Albumin 2.7 L Critical Care Note - Critical Care Note Total time excluding time spent on procedures (mins): 34 Comments: 34 minutes of critical care time spent in direct contact evaluating and reevaluating the patient, treating symptoms, reviewing labs and studies and speaking with family and consultants excluding any procedures Discharge - Discharge Clinical Impression: Upper GI bleed, Tachycardia Condition: Poor Disposition: [facility] Referrals: ALBERTA ALLEN MD [Primary Care Provider] - Follow up as needed
[2017-12-16] MEDS ORDERED: PROMETHAZINE HCL INJ 25 MG/1 ML VIAL IM ONE ×2 (13:26→21:24)
--- NOTE | 2017-12-16 13:43 | EKG REPORT ---
SEVERITY:- OTHERWISE NORMAL ECG - SINUS TACHYCARDIA : Confirmed by: Tod Laird MD 16-Dec-2017 13:42:24
[2017-12-16 13:50] LABS: ALANINE AMINOTRANSFERASE 27 U/L (9-52); ALBUMIN 2.7 g/dL (3.5-5.0); ALKALINE PHOSPHATASE 61 U/L (38-126); ANION GAP 7 (5-19); ASPARTATE AMINO TRANSFERASE 20 U/L (14-36); BILIRUBIN,DIRECT 0.2 mg/dL (0.0-0.4); BILIRUBIN,TOTAL 0.2 mg/dL (0.2-1.3); BLOOD UREA NITROGEN 15 mg/dL (7-20); CALCIUM 8.8 mg/dL (8.4-10.2); CARBON DIOXIDE 27 mmol/L (22-30); CHLORIDE 107 mmol/L (98-107); GLUCOSE 78 mg/dL (75-110); POTASSIUM 4.2 mmol/L (3.6-5.0); SODIUM 140.9 mmol/L (137-145); TOTAL PROTEIN 4.9 g/dL (6.3-8.2)
[2017-12-16 14:17] LABS: INTERNATIONAL RATION (INR) 1.01; PROTHROMBIN TIME 13.8 SEC (11.4-15.4)
[2017-12-16] MEDS: NORMAL SALINE 1000 ML 1,000 ML IV PRN ×2 (14:45→15:55)
[2017-12-16 15:28] LABS: APPEARANCE,URINE CLEAR; BILIRUBIN,URINE NEGATIVE (NEGATIVE); COLOR,URINE STRAW; GLUCOSE, URINE NEGATIVE (NEGATIVE); KETONES,URINE NEGATIVE (NEGATIVE); LEUKOCYTE ESTERASE,URINE NEGATIVE (NEGATIVE); NITRITE,URINE NEGATIVE (NEGATIVE); PROTEIN,URINE NEGATIVE (NEGATIVE); URINE SPECIFIC GRAVITY 1.004; UROBILINOGEN,URINE NEGATIVE mg/dL (<2.0)
[2017-12-16] MEDS ORDERED: PROCHLORPERAZINE EDISYLATE INJ 10 MG/2 ML VIAL IM ONE (20:10)
[2017-12-16] MEDS ORDERED: DIPHENHYDRAMINE HCL 50 MG/ML VIAL IV ONE (20:10)
[2017-12-16 21:18] VITALS: BP 106/79
== END 2017-12-16 21:18 | disposition short-term general hospital (02) ==
LOC: ER 12:49
DX: K92.2 Gastrointestinal hemorrhage, unspecified (principal); R00.0 Tachycardia, unspecified; K92.0 Hematemesis; R10.13 Epigastric pain; F17.210 Nicotine dependence, cigarettes, uncomplicated; I10 Essential (primary) hypertension; Z98.84 Bariatric surgery status; Z79.899 Other long term (current) drug therapy; Z88.8 Allergy status to other drugs, medicaments and biological substances; Z88.1 Allergy status to other antibiotic agents; Z88.2 Allergy status to sulfonamides
CPT/HCPCS: 93005; 96376; 99291; 96372; 96375; 96365; 96366; 86900; 86901; 36415; 86850; 85025; 85610; 80053; 81001; 93010; J1200; J1170; S0164; J0780; J2550; J7030

== ENCOUNTER → 2017-12-16 | Outpatient (CLI) | payer MEDICAID ==
[2017-12-16 11:29] LABS: ABSOLUTE BASOPHILS # (AUTO) 0.1 10^3/uL (0.0-0.2); ABSOLUTE EOSINOPHILS # (AUTO) 0.2 10^3/uL (0.0-0.6); ABSOLUTE LYMPHOCYTES (AUTO) 1.4 10^3/uL (0.5-4.7); ABSOLUTE MONOCYTES (AUTO) 0.3 10^3/uL (0.1-1.4); ABSOLUTE NEUT (AUTO) 4.8 10^3/uL (1.7-8.2); BASOPHILS % (AUTO) 0.8 % (0-2); EOSINOPHILS % (AUTO) 3.5 % (0-6); HEMATOCRIT 37.7 % (36.0-47.0); HEMOGLOBIN 12.7 g/dL (12.0-15.5); LYMPHOCYTES % (AUTO) 20.4 % (13-45); MEAN CORPUSCULAR HEMOGLOBIN 31.6 pg (27.0-33.4); MEAN CORPUSCULAR HGB CONC 33.8 g/dL (32.0-36.0); MEAN CORPUSCULAR VOLUME 94 fl (80-97); MONOCYTES % (AUTO) 4.8 % (3-13); PLATELET COUNT 395 10^3/uL (150-450); RED BLOOD COUNT 4.03 10^6/uL (3.72-5.28); SEGMENTED NEUTROPHILS % (AUTO) 70.5 % (42-78); TOTAL CELLS COUNTED % (AUTO) 100 %; WHITE BLOOD COUNT 6.8 10^3/uL (4.0-10.5)
[2017-12-16 11:50] LABS: ALANINE AMINOTRANSFERASE 28 U/L (9-52); ALKALINE PHOSPHATASE 70 U/L (38-126); ANION GAP 7 (5-19); ASPARTATE AMINO TRANSFERASE 22 U/L (14-36); BILIRUBIN,DIRECT 0.2 mg/dL (0.0-0.4); BILIRUBIN,TOTAL 0.2 mg/dL (0.2-1.3); BLOOD UREA NITROGEN 14 mg/dL (7-20); CARBON DIOXIDE 29 mmol/L (22-30); CHLORIDE 105 mmol/L (98-107); GLUCOSE 88 mg/dL (75-110); POTASSIUM 4.6 mmol/L (3.6-5.0); SODIUM 140.5 mmol/L (137-145); TOTAL PROTEIN 5.4 g/dL (6.3-8.2)
== END ==
LOC: OD 10:24
PROVIDERS: ATTEND Obstetrics & Gynecology
DX: K92.0 Hematemesis (principal); Z98.84 Bariatric surgery status; Z51.81 Encounter for therapeutic drug level monitoring; Z79.899 Other long term (current) drug therapy
CPT/HCPCS: 36415; 80053; 85025

== ENCOUNTER 2018-02-09 08:36 | Outpatient (CLI) | payer MEDICAID ==
[~2018-02-09 08:36] MED LIST: FERRIC CARBOXYMALTOSE 750 MG in NORMAL SALINE 250 ML IV PRN; NORMAL SALINE 250 ML IV PRN
[2018-02-09 09:27] VITALS: BP 137/91
== END 2018-02-09 10:13 | disposition home or self-care (01) ==
LOC: II 08:36 → 5TH 08:37 → II 10:13
PROVIDERS: ATTEND Internal Medicine Hematology & Oncology
PROC: 3E033GC Introduction of Other Therapeutic Substance into Peripheral Vein, Percutaneous Approach (ICD-10-PCS; principal; 2018-02-09)
DX: D50.0 Iron deficiency anemia secondary to blood loss (chronic) (principal); K91.2 Postsurgical malabsorption, not elsewhere classified
CPT/HCPCS: 96365; J7050; J1439

== ENCOUNTER 2018-02-16 08:38 | Outpatient (CLI) | payer MEDICAID ==
[2018-02-16 09:38] VITALS: BP 140/95
== END 2018-02-16 10:07 | disposition home or self-care (01) ==
LOC: II 08:38 → 5TH 08:41 → II 10:07
PROVIDERS: ATTEND Internal Medicine Hematology & Oncology
PROC: 3E033GC Introduction of Other Therapeutic Substance into Peripheral Vein, Percutaneous Approach (ICD-10-PCS; principal; 2018-02-16)
DX: D50.0 Iron deficiency anemia secondary to blood loss (chronic) (principal); K91.2 Postsurgical malabsorption, not elsewhere classified
CPT/HCPCS: 96365; J7050; J1439; 96367

== ENCOUNTER 2018-04-13 16:44 | Emergency (ER) | payer MEDICAID ==
[2018-04-13] MEDS ORDERED: ONDANSETRON HCL INJ/PF 4 MG/2 ML SDV IV ONE (17:56)
[2018-04-13] MEDS ORDERED: FAMOTIDINE INJ/PF 20 MG/2 ML SDV IV ONE (17:56)
[2018-04-13] MEDS ORDERED: NORMAL SALINE 250 ML IV PRN (17:57)
[2018-04-13] MEDS ORDERED: PANTOPRAZOLE SODIUM 40 MG VIAL IV PRN (18:00)
--- NOTE | 2018-04-13 18:01 | ER Document Report ---
ED Medical Screen (RME) - General Chief Complaint: Abdominal Pain Stated Complaint: VOMTING BLOOD Time Seen by Provider: 04/13/18 17:55 Information source: Patient Notes: 42 years old female with a history of peptic ulcer, bleeding ulcers in the past , took ibuprofen a few days ago presents today with tarry stool this morning then nausea vomited blood feeling dizzy and lightheaded. Presented to the ED with low blood pressure and appearing pale. Conjunctivae is pale TRAVEL OUTSIDE OF THE [place] IN LAST 30 DAYS: No - Related Data Allergies/Adverse Reactions: nitrofurantoin macrocrystalline [From Macrobid] Allergy (Verified 12/16/17 13:18 ) Anaphylaxis Sulfa (Sulfonamide Antibiotics) Allergy (Verified 12/16/17 13:18) Hives metoclopramide [From Reglan] Adverse Reaction (Verified 12/16/17 13:18) nitrofurantoin [From Macrobid] Adverse Reaction (Verified 12/16/17 13:18) Penicillins Adverse Reaction (Verified 12/16/17 13:18) Past Medical History - Past Medical History Cardiac Medical History: Reports: Hx Hypertension - lisinopril , only when in pain Denies: Hx Coronary Artery Disease, Hx Heart Attack Pulmonary Medical History: Denies: Hx Asthma, Hx Bronchitis, Hx COPD, Hx Pneumonia Neurological Medical History: Denies: Hx Cerebrovascular Accident, Hx Seizures Renal/ Medical History: Denies: Hx Peritoneal Dialysis Musculoskeltal Medical History: Denies Hx Arthritis, Reports Hx Musculoskeletal Deformity Psychiatric Medical History: Reports: Hx Anxiety Past Surgical History: Reports: Hx Appendectomy - Gastric Bypass, Hx Section - x3, Hx Cholecystectomy, Hx Gastric Bypass SurgeryComment Only: Hx Abdominal Surgery - gastric bypass, hernia repair x 4 - Immunizations Hx Diphtheria, Pertussis, Tetanus Vaccination: Yes - UNK Physical Exam - Vital signs Vitals: Temp Pulse Resp BP 98.2 F 120 H 16 76/56 L 04/13/18 17:25 04/13/18 17:25 04/13/18 17:25 04/13/18 17:25 Course - Vital Signs Vital signs: Temp Pulse Resp BP Pulse Ox 98.2 F 120 H 16 76/56 L 04/13/18 17:25 04/13/18 17:25 04/13/18 17:25 09/19/18 17:25 Doctor's Discharge - Discharge Referrals: ALBERTA ALLEN MD [Primary Care Provider] - Follow up as needed
--- NOTE | 2018-04-13 18:35 | ER Document Report ---
ED General - General Chief Complaint: Abdominal Pain Stated Complaint: VOMTING BLOOD Time Seen by Provider: 04/13/18 17:55 Mode of Arrival: Ambulatory Information source: Patient, [facility] Records Notes: 42-year-old female with hypertension, chronic back and neck pain, iron deficiency anemia, history of upper GI bleed, gastric bypass presents with complaint of coffee-ground emesis and black tarry stools. Patient states that she had a bowel movement earlier this morning which she describes as black. She states her second bowel movement was black with bright red blood. Patient states that she also had 2 episodes of black emesis which was streaked with blood. Patient states that one year prior to arrival she had similar symptoms and was transferred to [facility] where they found a perforation near her anastomosis. Patient currently takes Carafate, Protonix. Patient also complaining of epigastric abdominal pain that radiates to her back. She describes it as a burning throbbing pain. TRAVEL OUTSIDE OF THE [place] IN LAST 30 DAYS: No - HPI Onset: This morning Onset/Duration: Sudden Quality of pain: Pressure, Stabbing Severity: Mild Associated symptoms: Nausea, Vomiting, Other - Dizziness Exacerbated by: Denies Relieved by: Denies Similar symptoms previously: Yes Recently seen / treated by doctor: No - Related Data Allergies/Adverse Reactions: nitrofurantoin macrocrystalline [From Macrobid] Allergy (Verified 04/13/18 21:24 ) Anaphylaxis Sulfa (Sulfonamide Antibiotics) Allergy (Verified 04/13/18 21:24) Hives metoclopramide [From Reglan] Adverse Reaction (Verified 04/13/18 21:24) nitrofurantoin [From Macrobid] Adverse Reaction (Verified 04/13/18 21:24) Penicillins Adverse Reaction (Verified 04/13/18 21:24) Past Medical History - General Information source: Patient, [facility] Records - Social History Smoking Status: Current Every Day Smoker Cigarette use (# per day): Yes - 10 Smoking Education Provided: Yes - Smoking cessation counseling was provided for 4 minutes at the bedside Frequency of alcohol use: None Drug Abuse: None Lives with: Family Family History: Reviewed & Not Pertinent Patient has suicidal ideation: No Patient has homicidal ideation: No - Past Medical History Cardiac Medical History: Reports: Hx Hypertension - lisinopril , only when in pain Denies: Hx Coronary Artery Disease, Hx Heart Attack Pulmonary Medical History: Denies: Hx Asthma, Hx Bronchitis, Hx COPD, Hx Pneumonia Neurological Medical History: Denies: Hx Cerebrovascular Accident, Hx Seizures Renal/ Medical History: Denies: Hx Peritoneal Dialysis Musculoskeletal Medical History: Denies Hx Arthritis, Reports Hx Musculoskeletal Deformity Psychiatric Medical History: Reports: Hx Anxiety Past Surgical History: Reports: Hx Appendectomy - Gastric Bypass, Hx Section - x3, Hx Cholecystectomy, Hx Gastric Bypass SurgeryComment Only: Hx Abdominal Surgery - gastric bypass, hernia repair x 4 - Immunizations Hx Diphtheria, Pertussis, Tetanus Vaccination: Yes - UNK Review of Systems - Review of Systems Notes: REVIEW OF SYSTEMS: CONSTITUTIONAL : Denies fever, chills, or sweats. Denies recent illness. Denies weight loss, recent hospitalizations. EENT: Denies visual changes, eye pain. Denies sore throat, oral lesions, difficulty swallowing. CARDIOVASCULAR: Denies chest pain. Denies palpitations. Denies lower extremity edema. RESPIRATORY: Denies cough. Denies shortness of breath, wheezing. GASTROINTESTINAL: Denies abdominal distention. Denies diarrhea. Denies constipation. GENITOURINARY: Denies difficulty urinating, painful urination, frequency, blood in urine, or vaginal discharge. MUSCULOSKELETAL: Denies back or neck pain or stiffness. Denies joint pain or swelling. SKIN: Denies rash, lesions or sores. HEMATOLOGIC : Denies easy bruising or bleeding. LYMPHATIC: Denies swollen glands. NEUROLOGICAL: Denies confusion or altered mental status. Denies loss of consciousness. Denies dizziness or lightheadedness. Denies headache. Denies weakness or paralysis. Denies problems difficulty with ambulation, slurred speech. Denies sensory loss, numbness, or tingling. Denies seizures. PSYCHIATRIC: Denies anxiety or stress. Denies depression, suicidal ideation, or homicidal ideation. Denies visual or auditory hallucinations. Physical Exam - Vital signs Vitals: Temp Pulse Resp BP 98.2 F 120 H 16 76/56 L 04/13/18 17:25 04/13/18 17:25 04/13/18 17:25 04/13/18 17:25 Interpretation: Hypotensive, Tachycardic. No: Febrile - Notes Notes: PHYSICAL EXAMINATION: GENERAL: ILL-appearing, in moderate distress. HEAD: Atraumatic, normocephalic. EYES: Pupils equal round and reactive to light, extraocular movements intact, pale conjunctiva ENT: Nares patent, oropharynx clear without exudates. Moist mucous membranes. NECK: Normal range of motion, supple without lymphadenopathy LUNGS: Breath sounds clear to auscultation bilaterally and equal. No wheezes rales or rhonchi. HEART: Tachycardic, regular rhythm without murmurs ABDOMEN: Tender to palpation in the epigastric region. No guarding, no rebound. No masses appreciated. Female : Brown stool, no gross blood Musculoskeletal: Normal range of motion, no pitting or edema. No cyanosis. NEUROLOGICAL: Cranial nerves grossly intact. Normal speech, normal gait. Normal sensory, motor exams PSYCH: Normal mood, normal affect. SKIN: Pale Course - Re-evaluation Re-evalutation: Laboratory 04/13/18 04/13/18 04/13/18 18:20 18:45 18:45 WBC 5.9 RBC 3.64 L Hgb 10.8 L Hct 32.4 L MCV 89 MCH 29.8 MCHC 33.4 RDW 17.0 H Plt Count 252 Seg Neutrophils % 79.4 H Lymphocytes % 14.6 Monocytes % 5.5 Eosinophils % 0.2 Basophils % 0.3 Absolute Neutrophils 4.7 Absolute Lymphocytes 0.9 Absolute Monocytes 0.3 Absolute Eosinophils 0.0 Absolute Basophils 0.0 Sodium 136.8 L Potassium 4.3 Chloride 108 H Carbon Dioxide 23 Anion Gap 6 BUN 22 H Creatinine 0.55 Est GFR ( Amer) > 60 Est GFR (Non-Af Amer) > 60 Glucose 108 Calcium 8.5 Total Bilirubin 0.2 Direct Bilirubin 0.2 Neonat Total Bilirubin Not Reportable Neonat Direct Bilirubin Not Reportable Neonat Indirect Bili Not Reportable AST 18 ALT 25 Alkaline Phosphatase 58 Total Protein 4.8 L Albumin 2.6 L Lipase 57.6 Urine Color Urine Appearance Urine pH Ur Specific [place] Urine Protein Urine Glucose (UA) Urine Ketones Urine Blood Urine Nitrite Urine Bilirubin Urine Urobilinogen Ur Leukocyte Esterase Urine WBC (Auto) Urine Bacteria (Auto) Squamous Epi Cells Auto Urine Mucus (Auto) Urine Ascorbic Acid Urine HCG, Qual Stool Occult Blood POSITIVE Blood Type Antibody Screen Crossmatch 04/13/18 04/13/18 19:00 21:45 WBC RBC Hgb Hct MCV MCH MCHC RDW Plt Count Seg Neutrophils % Lymphocytes % Monocytes % Eosinophils % Basophils % Absolute Neutrophils Absolute Lymphocytes Absolute Monocytes Absolute Eosinophils Absolute Basophils Sodium Potassium Chloride Carbon Dioxide Anion Gap BUN Creatinine Est GFR ( Amer) Est GFR (Non-Af Amer) Glucose Calcium Total Bilirubin Direct Bilirubin Neonat Total Bilirubin Neonat Direct Bilirubin Neonat Indirect Bili AST ALT Alkaline Phosphatase Total Protein Albumin Lipase Urine Color YELLOW Urine Appearance SLIGHTLY-CLOUDY Urine pH 7.0 Ur Specific [place] 1.012 Urine Protein NEGATIVE Urine Glucose (UA) NEGATIVE Urine Ketones NEGATIVE Urine Blood NEGATIVE Urine Nitrite POSITIVE H Urine Bilirubin NEGATIVE Urine Urobilinogen NEGATIVE Ur Leukocyte Esterase TRACE H Urine WBC (Auto) 4 Urine Bacteria (Auto) 3+ Squamous Epi Cells Auto <1 Urine Mucus (Auto) FEW Urine Ascorbic Acid NEGATIVE Urine HCG, Qual NEGATIVE Stool Occult Blood Blood Type A POSITIVE Antibody Screen NEGATIVE Crossmatch See Detail 04/13/18 20:33 [facility] contacted for transfer 04/13/18 20:[address] Mott from [facility]. Despite multiple fluid boluses patient remains tachycardic and hypotensive. She reports no improvement of her pain. Patient placed on octreotide and Protonix drip. Patient administered 0.5 mg of Dilaudid. 04/13/18 22:25 On reevaluation patient reports that her pain is still present but greatly improved. Her tachycardia has resolved and blood pressure has normalized. Patient stable for transfer. ED course: 42-year-old female with hypertension, chronic back and neck pain, iron deficiency anemia, history of upper GI bleed, gastric bypass presents with complaint of coffee-ground emesis and black tarry stools. Upon arrival patient is tachycardic, hypotensive and in moderate amount of pain. She states that this feels similar to her recent GI bleed in November 2017. She states at that time she had a perforation at the anastomosis site of her gastric bypass. IV fluids were initiated as well as Protonix, octreotide. Hemoglobin stable. stool positive for blood. Patient received 3 L of IV fluids, Dilaudid, Pepcid. Patient's pain was difficult to control. She does appear quite ill. Although her hemoglobin is stable with her prior history of massive upper GI bleed I feel it is in the patient's best interest to be transferred where she can be evaluated by gastroenterology and placed in the ICU. Patient's prior procedure was done at [facility] she was transferred via [facility]. 04/13/18 23:48 04/13/18 23:50 - Vital Signs Vital signs: Temp Pulse Resp BP Pulse Ox 98.5 F 120 H 18 123/93 H 100 04/13/18 22:19 04/13/18 17:25 04/13/18 22:19 04/13/18 22:19 04/13/18 22:19 - Laboratory Result Diagrams: 04/13/18 18:45 04/13/18 18:45 Laboratory results interpreted by me: 04/13/18 04/13/18 04/13/18 18:45 18:45 19:00 RBC 3.64 L Hgb 10.8 L Hct 32.4 L RDW 17.0 H Seg Neutrophils % 79.4 H Sodium 136.8 L Chloride 108 H BUN 22 H Total Protein 4.8 L Albumin 2.6 L Urine Nitrite Ur Leukocyte Esterase Crossmatch See Detail 04/13/18 21:45 RBC Hgb Hct RDW Seg Neutrophils % Sodium Chloride BUN Total Protein Albumin Urine Nitrite POSITIVE H Ur Leukocyte Esterase TRACE H Crossmatch Critical Care Note - Critical Care Note Total time excluding time spent on procedures (mins): 40 Discharge - Discharge Clinical Impression: Upper GI bleed, Tachycardia Hypotension Qualifiers: Hypotension type: unspecified hypotension type Qualified Code(s): I95.9 - Hypotension, unspecified Condition: Fair Disposition: [facility] Referrals: ALBERTA ALLEN MD [Primary Care Provider] - Follow up as needed
[2018-04-13 18:58] LABS: ABSOLUTE LYMPHOCYTES (AUTO) 0.9 10^3/uL (0.5-4.7); ABSOLUTE MONOCYTES (AUTO) 0.3 10^3/uL (0.1-1.4); ABSOLUTE NEUT (AUTO) 4.7 10^3/uL (1.7-8.2); BASOPHILS % (AUTO) 0.3 % (0-2); EOSINOPHILS % (AUTO) 0.2 % (0-6); HEMATOCRIT 32.4 % (36.0-47.0); HEMOGLOBIN 10.8 g/dL (12.0-15.5); LYMPHOCYTES % (AUTO) 14.6 % (13-45); MEAN CORPUSCULAR HEMOGLOBIN 29.8 pg (27.0-33.4); MEAN CORPUSCULAR HGB CONC 33.4 g/dL (32.0-36.0); MEAN CORPUSCULAR VOLUME 89 fl (80-97); MONOCYTES % (AUTO) 5.5 % (3-13); PLATELET COUNT 252 10^3/uL (150-450); RED BLOOD COUNT 3.64 10^6/uL (3.72-5.28); SEGMENTED NEUTROPHILS % (AUTO) 79.4 % (42-78); TOTAL CELLS COUNTED % (AUTO) 100 %; WHITE BLOOD COUNT 5.9 10^3/uL (4.0-10.5)
[2018-04-13 19:13] LABS: ALANINE AMINOTRANSFERASE 25 U/L (9-52); ALBUMIN 2.6 g/dL (3.5-5.0); ALKALINE PHOSPHATASE 58 U/L (38-126); ANION GAP 6 (5-19); ASPARTATE AMINO TRANSFERASE 18 U/L (14-36); BILIRUBIN,DIRECT 0.2 mg/dL (0.0-0.4); BILIRUBIN,TOTAL 0.2 mg/dL (0.2-1.3); BLOOD UREA NITROGEN 22 mg/dL (7-20); CALCIUM 8.5 mg/dL (8.4-10.2); CARBON DIOXIDE 23 mmol/L (22-30); CHLORIDE 108 mmol/L (98-107); GLUCOSE 108 mg/dL (75-110); LIPASE 57.6 U/L (23-300); POTASSIUM 4.3 mmol/L (3.6-5.0); SODIUM 136.8 mmol/L (137-145); TOTAL PROTEIN 4.8 g/dL (6.3-8.2)
[2018-04-13] MEDS ORDERED: MORPHINE SULFATE 10 MG/ML INJ IV ONE (19:35)
[2018-04-13] MEDS ORDERED: NORMAL SALINE 1000 ML 1,000 ML IV ONE ×2 (19:37→20:39)
[2018-04-13] MEDS ORDERED: HYDROMORPHONE HCL INJ/PF 2 MG/ML AMPULE IV ONE (20:35)
[2018-04-13] MEDS ORDERED: NORMAL SALINE 500 ML with OCTREOTIDE ACETATE 500 MCG IV PRN ×2 (20:39)
[2018-04-13] MEDS ORDERED: OCTREOTIDE ACETATE INJ/PF 100 MCG/1 ML SDV ONE ×3 (20:59→21:10)
[2018-04-13 22:07] LABS: APPEARANCE,URINE SLIGHTLY-CLOUDY; BILIRUBIN,URINE NEGATIVE (NEGATIVE); COLOR,URINE YELLOW; GLUCOSE, URINE NEGATIVE (NEGATIVE); KETONES,URINE NEGATIVE (NEGATIVE); LEUKOCYTE ESTERASE,URINE TRACE (NEGATIVE); NITRITE,URINE POSITIVE (NEGATIVE); PROTEIN,URINE NEGATIVE (NEGATIVE); URINE SPECIFIC GRAVITY 1.012; UROBILINOGEN,URINE NEGATIVE mg/dL (<2.0)
[2018-04-13 22:21] VITALS: BP 123/93
--- NOTE | 2018-04-13 22:28 | EKG REPORT ---
SEVERITY:- OTHERWISE NORMAL ECG - SINUS TACHYCARDIA : Confirmed by: Jessika Rosado MD 13-Apr-2018 22:27:48
== END 2018-04-13 22:31 | disposition short-term general hospital (02) ==
LOC: ER 16:44
DX: K92.2 Gastrointestinal hemorrhage, unspecified (principal); R00.0 Tachycardia, unspecified; I95.9 Hypotension, unspecified; F17.210 Nicotine dependence, cigarettes, uncomplicated
CPT/HCPCS: 93005; 99406; 99291; 96375; 96365; 96366; 86900; 86901; 36415; 86850; 83690; 85025; 82272; 81025; 80053; 81001; 86920; 93010; J2270; J1170; J2354; S0164; J2405; S0028

== ENCOUNTER → 2018-08-08 | Outpatient (CLI) | payer MEDICAID ==
--- NOTE | 2018-08-08 15:22 | RADIOLOGY REPORT (SQ) ---
EXAM DESCRIPTION: WRIST LEFT 3 VIEWS COMPLETED DATE/TIME: 08/08/2018 3:05 pm REASON FOR STUDY: F/U POLYPS;LEFT WRIST PAIN left wrist pain and decreased range of motion. No trau ma COMPARISON: None. NUMBER OF VIEWS: Three views. TECHNIQUE: AP, lateral, and oblique radiographic images acquired of the left wrist. LIMITATIONS: None. FINDINGS: MINERALIZATION: Normal. BONES: No acute fracture or dislocation. No worrisome bone lesions. Normal alignment. SOFT TISSUES: No soft tissue swelling. No foreign body. OTHER: There is widening of the scaphotrapezium joint, and subcortical cyst formation in the scaphoid bone and trapezium bone indicating arthritis and probable joint effusion. IMPRESSION: Widening of the left scaphotrapezium joint with subcortical cysts along the articular greco rfaces of the scaphoid and trapezium bone. This most likely represents arthritis with joint effusion . No acute fracture or malalignment TECHNICAL DOCUMENTATION: JOB ID: [id number] [email or web address]- All Rights Reserved Reading location - IP/workstation name: [email or web address]
--- NOTE | 2018-08-08 15:25 | RADIOLOGY REPORT (SQ) ---
EXAM DESCRIPTION: PARANASAL SINUSES COMPLETED DATE/TIME: 08/08/2018 3:05 pm REASON FOR STUDY: F/U POLYPS;LEFT WRIST PAIN COMPARISON: None. NUMBER OF VIEWS: Three views TECHNIQUE: Images of the paranasal sinuses acquired. LIMITATIONS: None. FINDINGS: ORBITS: No fracture. No foreign body. SINUSES: No mucosal thickening. No air fluid levels. FACIAL BONES: No fracture. OTHER: Old midline frontal craniotomy IMPRESSION: NO FOREIGN BODY OR FRACTURE. NO PLAIN RADIOGRAPHIC EVIDENCE FOR SINUS DISEASE. TECHNICAL DOCUMENTATION: JOB ID: [id number]- All Rights Reserved Reading location - IP/workstation name: [id number]
== END ==
LOC: OD 14:37
PROVIDERS: ATTEND Obstetrics & Gynecology
DX: M25.532 Pain in left wrist (principal)
CPT/HCPCS: 70220

== ENCOUNTER → 2018-09-29 | Outpatient (CLI) | payer MEDICAID ==
--- NOTE | 2018-09-29 14:21 | RADIOLOGY REPORT (SQ) ---
EXAM DESCRIPTION: HAND LEFT 3 VIEWS COMPLETED DATE/TIME: 09/29/2018 2:11 pm REASON FOR STUDY: PAIN WITH ROM ISSUES COMPARISON: None. EXAM PARAMETERS: NUMBER OF VIEWS: Three views. TECHNIQUE: AP, lateral and oblique radiographic images acquired of the left hand. LIMITATIONS: None. FINDINGS: MINERALIZATION: Normal. BONES: No acute fracture or dislocation. No worrisome bone lesions. JOINTS: No effusions. SOFT TISSUES: No soft tissue swelling. No foreign body. OTHER: No other significant finding. IMPRESSION: NORMAL LEFT HAND. TECHNICAL DOCUMENTATION: JOB ID: [id number] [id number] 2010 [employer]- All Rights Reserved Reading location - IP/workstation name: [email or web address]
--- NOTE | 2018-09-29 14:22 | RADIOLOGY REPORT (SQ) ---
EXAM DESCRIPTION: WRIST LEFT 3 VIEWS COMPLETED DATE/TIME: 09/29/2018 2:11 pm REASON FOR STUDY: PAIN WITH ROM ISSUES COMPARISON: None. NUMBER OF VIEWS: Three views. TECHNIQUE: AP, lateral, and oblique radiographic images acquired of the left wrist. LIMITATIONS: None. FINDINGS: MINERALIZATION: Normal. BONES: No acute fracture or dislocation. No worrisome bone lesions. Normal alignment. SOFT TISSUES: No soft tissue swelling. No foreign body. OTHER: No other significant finding. IMPRESSION: NORMAL LEFT WRIST. TECHNICAL DOCUMENTATION: JOB ID: [id number] SC-[id number] 2010 [employer]- All Rights Reserved Reading location - IP/workstation name: [email or web address]
== END ==
LOC: OD 13:52
PROVIDERS: ATTEND Obstetrics & Gynecology
DX: M79.642 Pain in left hand (principal)

== ENCOUNTER → 2019-08-24 | Outpatient (CLI) | payer MEDICAID | LOC: OD 11:54 | PROVIDERS: ATTEND Obstetrics & Gynecology | DX: R10.9 Unspecified abdominal pain (principal); R07.9 Chest pain, unspecified; M54.9 Dorsalgia, unspecified | CPT/HCPCS: 36415; 84110 ==

== ENCOUNTER → 2019-10-02 | Outpatient (CLI) | payer MEDICAID ==
--- NOTE | 2019-10-02 12:20 | RADIOLOGY REPORT (SQ) ---
EXAM DESCRIPTION: CERV SP 4 OR 5 VIEWS COMPLETED DATE/TIME: 10/02/2019 11:52 am REASON FOR STUDY: LEFT ARM PAIN (M79.602) M79.602 PAIN IN LEFT ARM COMPARISON: 08/02/2014 NUMBER OF VIEWS: Five views. TECHNIQUE: AP, lateral, flexion and extension radiographic images acquired of the cervical spine. LIMITATIONS: None. FINDINGS: MINERALIZATION: Normal. ALIGNMENT: Anatomic. No instability with flexion or extension. VERTEBRAE: Vertebral bodies of normal height. DISCS: No significant osteophytes. Minimal disc height loss, greatest at C4-5. FORAMINA: No osteophytes or foraminal narrowing. LATERAL AND POSTERIOR ELEMENTS: Facets, lateral masses and spinous processes without significant find ings. HARDWARE: None in the spine. SOFT TISSUES: No masses or calcifications. Lung apices clear. OTHER: No other significant finding. IMPRESSION: No evidence of acute bony abnormality of the cervical spine. No instability with flexio n or extension. Minimal disc height loss in the mid cervical spine. TECHNICAL DOCUMENTATION: JOB ID: [id number] 2010 [employer]- All Rights Reserved Reading location - IP/workstation name: [email or web address]
--- NOTE | 2019-10-02 13:06 | RADIOLOGY REPORT (SQ) ---
EXAM DESCRIPTION: MRI CERVICAL SPINE WITHOUT COMPLETED DATE/TIME: 10/02/2019 12:06 pm REASON FOR STUDY: M79.602 PAIN IN LEFT ARM M79.602 PAIN IN LEFT ARM COMPARISON: None. TECHNIQUE: Sagittal and Axial imaging includes T1, T2, STIR and gradient echo sequences. LIMITATIONS: None. FINDINGS: ALIGNMENT: Normal. VERTEBRAE: Intact. BONE MARROW: Normal. No marrow replacement or reactive changes. DISCS: Disc spaces are narrowed from C4-C6. Decreased T2 signal intensity. HARDWARE: None in the spine. CORD AND BASE OF BRAIN: Normal in size and signal intensity. SOFT TISSUES: No soft tissue masses. C1-C2: No significant spinal stenosis. C2-C3: No significant spinal stenosis or exit foraminal stenosis. C3-C4: Shallow, broad-based disc/osteophyte complex with no central canal or foraminal stenosis. C4-C5: Broad-based disc/osteophyte complex narrows the anterior CSF space and slightly flattens the s darling cord anteriorly. No foraminal stenosis. C5-C6: Broad-based disc/osteophyte complex that is slightly asymmetrical to the right. This contacts the right side of spinal cord but does not deform the cord. No foraminal stenosis. C6-C7: No significant spinal stenosis or exit foraminal stenosis. C7-T1: No significant spinal stenosis or exit foraminal stenosis. UPPER THORACIC: Incompletely imaged. No significant spinal stenosis or exit foraminal stenosis. OTHER: No other significant finding. IMPRESSION: Relatively mild disc changes as described. Most significant finding is present at C4-5 with mild central canal stenosis. TECHNICAL DOCUMENTATION: JOB ID: [id number] 2010 [employer]- All Rights Reserved Reading location - IP/workstation name: [email or web address]
== END ==
LOC: RAD 11:01
PROVIDERS: ATTEND Specialist
DX: M79.602 Pain in left arm (principal); M25.78 Osteophyte, vertebrae; M48.02 Spinal stenosis, cervical region
CPT/HCPCS: 72050; 72141